=== PATIENT | male | born 1965 | race Caucasian/White ===

== ENCOUNTER 2025-05-29 07:53 | Outpatient (RCR) | payer MEDICAID, SELFPAY | END 2025-05-29 08:59 | disposition home or self-care (01) | LOC: HO.PT 07:53 | PROVIDERS: PCP Nurse Practitioner; Visit Provider Physician Assistant | DX: N39.3 Stress incontinence (female) (male) (principal) | CPT/HCPCS: 97110; 97112; 97140; 97161; 97530 ==